=== PATIENT | male | born 1955 | race Caucasian/White ===

== ENCOUNTER 2023-03-13 07:18 | Outpatient (CLI) | payer OTHER | END 2023-03-13 20:29 | disposition home or self-care (01) | LOC: SUS 07:18 | PROVIDERS: ATTEND Internal Medicine | DX: R16.0 Hepatomegaly, not elsewhere classified (principal); N28.1 Cyst of kidney, acquired; R06.02 Shortness of breath; K80.20 Calculus of gallbladder without cholecystitis without obstruction; R00.2 Palpitations | CPT/HCPCS: 71046-TC; 76700-TC; 93005 ==

== ENCOUNTER 2024-02-29 08:23 | Outpatient (CLI) | payer OTHER | END 2024-02-29 19:45 | disposition home or self-care (01) | LOC: SCA 08:23 | PROVIDERS: ATTEND Internal Medicine | DX: I51.7 Cardiomegaly (principal); E55.9 Vitamin D deficiency, unspecified | CPT/HCPCS: 93005 ==